=== PATIENT | male | born 1990 | race Caucasian/White ===

== ENCOUNTER 2017-06-10 16:36 | Emergency (ER) | payer BC, MEDICAID, OTHER ==
[2017-06-10 16:45] VITALS: BP 140/77
--- NOTE | 2017-06-10 17:33 | UC ---
Respiratory Complaint HPI - HPI Summary HPI Summary: chest burning with cough and inspiration for 2 days, no fevers chills nausea vomiting or SOB. Is also interested in STD testing - History of Current Complaint Chief Complaint: UCRespiratory Stated Complaint: RESP COMPLAINT Time Seen by Provider: 06/10/17 17:45 Hx Obtained From: Patient Onset/Duration: Sudden Onset, Lasting Days - 2, Still Present Timing: Constant Severity Initially: Mild Severity Currently: Mild Character: Cough: Nonproductive Aggravating Factors: Deep Breaths Alleviating Factors: Nothing Associated Signs And Symptoms: Positive: Pleuritic Chest Pain, URI - Allergies/Home Medications Allergies/Adverse Reactions: Allergies Allergy/AdvReac Type Severity Reaction Status Date / Time Penicillins Allergy Severe Anaphylatic Verified 06/10/17 16:44 Shock PMH/Surg Hx/FS Hx/Imm Hx Previously Healthy: Yes Other History Of: Negative For: HIV, Hepatitis B, Hepatitis C - Surgical History Surgical History: Yes Surgery Procedure, Year, and Place: tubes in ears; testicular surgery - Family History Known Family History: Positive: None Negative: Cardiac Disease, Hypertension - Social History Occupation: Employed Full-time Lives: With Family Alcohol Use: None Substance Use Type: None Smoking Status (MU): Never Smoked Tobacco Household Exposure Type: Cigarettes - Immunization History Most Recent Influenza Vaccination: 2014 Most Recent Tetanus Shot: UTD Review of Systems Constitutional: Negative Skin: Negative Eyes: Negative ENT: Negative Respiratory: Cough Cardiovascular: Negative Gastrointestinal: Negative Genitourinary: Negative Motor: Negative Neurovascular: Negative Musculoskeletal: Negative Neurological: Negative Psychological: Negative Is Patient Immunocompromised?: No All Other Systems Reviewed And Are Negative: Yes Physical Exam Triage Information Reviewed: Yes Appearance: Well-Appearing, No Pain Distress, Well-Nourished Vital Signs: Initial Vital Signs Temp 98.6 F 06/10/17 16:38 Pulse 104 06/10/17 16:38 Resp 15 06/10/17 16:38 BP 140/77 06/10/17 16:38 Pulse Ox 99 06/10/17 16:38 Vital Signs Reviewed: Yes Eye Exam: Normal Eyes: Positive: Conjunctiva Clear ENT Exam: Normal ENT: Positive: Normal ENT inspection, Hearing grossly normal, Pharynx normal, TMs normal, Uvula midline. Negative: Nasal congestion, Nasal drainage, Tonsillar swelling, Tonsillar exudate, Trismus, Muffled voice, Hoarse voice, Dental tenderness, Sinus tenderness Dental Exam: Normal Neck exam: Normal Neck: Positive: Supple, Nontender, No Lymphadenopathy Respiratory Exam: Normal Respiratory: Positive: Chest non-tender, Lungs clear, Normal breath sounds, No respiratory distress, No accessory muscle use Cardiovascular Exam: Normal Cardiovascular: Positive: RRR, No Murmur, Pulses Normal, Brisk Capillary Refill Musculoskeletal Exam: Normal Musculoskeletal: Positive: Strength Intact, ROM Intact, No Edema Neurological Exam: Normal Neurological: Positive: Alert, Muscle Tone Normal Psychological Exam: Normal Skin Exam: Normal UC Diagnostic Evaluation - Laboratory O2 Sat by Pulse Oximetry: 99 Respiratory Course/Dx - Course Course Of Treatment: Lab studies for STD screening, albuterol, zithromax and prednisone for Bronchitis, follow with pcp - Differential Dx/Diagnosis Provider Diagnoses: Bronchitis, STD screening Discharge - Discharge Plan Condition: Stable Disposition: HOME Prescriptions: Albuterol HFA INHALER* [Ventolin HFA Inhaler*] 2 puff INH Q4H PRN #1 mdi PRN Reason: cough/chest tightness Azithromycin TAB* [Zithromax TAB (Z-THERESA) 250 mg #6 tabs] 2 tab PO .TODAY, THEN 1 DAILY #1 theresa predniSONE TAB* [Deltasone TAB*] 50 mg PO DAILY #4 tab Patient Education Materials: Sexually Transmitted Diseases (ED), Acute Bronchitis (ED), Hypertension (ED) Referrals: Jet Almaguer MD [Primary Care Provider] - 1 Week
--- NOTE | 2017-06-12 15:11 | UC ---
- Progress Note Progress Note: please call patient--notify patient he is positive for Chlamydia will be treated with a one time dose of 1,000 mg of Zithromax--he must take all at once- --no sexual contact for 10 days, any other he has had sexual contact with should also be treated---We can provide expedited partner treatment--But I cannot call them in he must come up here to get the scripts please find out how many he will need please---Meds have been called in to pharmacy documented Course/Dx - Course Course Of Treatment: Lab studies for STD screening, albuterol, zithromax and prednisone for Bronchitis, follow with pcp
== END 2017-06-10 18:00 | disposition home or self-care (01) ==
LOC: UCEAST 16:36
DX: J40 Bronchitis, not specified as acute or chronic (principal); Z11.3 Encounter for screening for infections with a predominantly sexual mode of transmission; Z11.4 Encounter for screening for human immunodeficiency virus [HIV]; Z88.0 Allergy status to penicillin; Z77.22 Contact with and (suspected) exposure to environmental tobacco smoke (acute) (chronic)
CPT/HCPCS: 36415; 81003; 86592; 86703; 86706; 86803; 87340; 87491; 87591; 99212; G0463

== ENCOUNTER 2017-06-18 20:30 | Emergency (ER) | payer MEDICAID ==
[2017-06-18 20:39] VITALS: BP 146/86
[2017-06-18] MEDS ORDERED: Fluorescein Sodium TOPICAL* 1 MG TEST OPHTHALMIC ONE (21:28)
[2017-06-18] MEDS ORDERED: Polymyx/Trimethoprim OPTH* 10 ML BTL LEFT EYE ONE (21:46)
[2017-06-18] MEDS ORDERED: Ibuprofen TAB* 600 MG PO ONE (21:47)
--- NOTE | 2017-06-18 21:48 | UC ---
Eye Complaint HPI - HPI Summary HPI Summary: 26 yo male awoke this am and noted left eye redness and photophobia tearing no purlent d/c no trauma lower lid FB sensation - History of Current Complaint Chief Complaint: UCEye Stated Complaint: EYE COMPLAINT Time Seen by Provider: 06/18/17 21:24 Hx Obtained From: Patient Onset/Duration: Gradual Onset, Lasting Hours Timing: Constant Severity Initially: Moderate Severity Currently: Moderate Pain Intensity: 6 Pain Scale Used: 0-10 Numeric Location of Injury: Conjunctiva Associated Signs And Symptoms: Positive: Photophobia, Drainage (Clear) Eyes: 1 - corneal abrasion - Risk Factors Penetrating Injury Risk Factor: Negative Globe Rupture Risk Factors: Negative Acute Glaucoma Risk Factors: Negative Optic Artery Occlusion Risk Factors: Negative - Allergies/Home Medications Allergies/Adverse Reactions: Allergies Allergy/AdvReac Type Severity Reaction Status Date / Time Penicillins Allergy Severe Anaphylatic Verified 06/18/17 20:39 Shock PMH/Surg Hx/FS Hx/Imm Hx Previously Healthy: Yes Other History Of: Negative For: HIV, Hepatitis B, Hepatitis C - Surgical History Surgical History: Yes Surgery Procedure, Year, and Place: tubes in ears; testicular surgery - Family History Known Family History: Negative: Cardiac Disease, Hypertension - Social History Alcohol Use: None Substance Use Type: None Smoking Status (MU): Never Smoked Tobacco Household Exposure Type: Cigarettes - Immunization History Most Recent Influenza Vaccination: 2014 Most Recent Tetanus Shot: UTD Review of Systems Constitutional: Negative Skin: Negative Eyes: Eye Redness, Photophobia ENT: Negative Respiratory: Negative Cardiovascular: Negative Gastrointestinal: Negative Genitourinary: Negative Motor: Negative Neurovascular: Negative Musculoskeletal: Negative Neurological: Negative Psychological: Negative Is Patient Immunocompromised?: No All Other Systems Reviewed And Are Negative: Yes Physical Exam Triage Information Reviewed: Yes Appearance: Well-Appearing, No Pain Distress, Well-Nourished Vital Signs: Initial Vital Signs Temp 97.7 F 06/18/17 20:35 Pulse 93 06/18/17 20:35 Resp 16 06/18/17 20:35 BP 146/86 06/18/17 20:35 Pulse Ox 100 06/18/17 20:35 Eyes: Positive: Conjunctiva Inflamed, Other: - eomi/perrl/(+) florescein staining defect as noted. Negative: Discharge Neck: Positive: Supple, Nontender Respiratory: Positive: Lungs clear, Normal breath sounds, No respiratory distress Cardiovascular: Positive: RRR, No Murmur Musculoskeletal: Positive: ROM Intact, No Edema Neurological: Positive: Alert Psychological Exam: Normal Skin Exam: Normal Eye Complaint Course/Dx - Differential Dx/Diagnosis Provider Diagnoses: corneal abrasion left eye Discharge - Discharge Plan Condition: Stable Disposition: HOME Prescriptions: Ibuprofen TAB* [Motrin TAB*] 600 mg PO Q6H PRN #40 tab PRN Reason: Pain Patient Education Materials: Corneal Abrasion (ED) Referrals: Joel Tong MD [Medical Doctor] - 1 Day Additional Instructions: I suggest recheck tomorrow If unable to get in to see Dr. Tong we are happy to recheck you You have a good sized abrasion and we want to make sure it heals use antibiotic drops as prescribed
== END 2017-06-18 22:05 | disposition home or self-care (01) ==
LOC: UCEAST 20:30
DX: S05.02XA Injury of conjunctiva and corneal abrasion without foreign body, left eye, initial encounter (principal); X58.XXXD Exposure to other specified factors, subsequent encounter; Y92.9 Unspecified place or not applicable
CPT/HCPCS: 99213; A9270-GY; G0463

== ENCOUNTER 2017-10-09 02:45 | Emergency (ER) | payer MEDICAID ==
[2017-10-09 03:32] LABS: ABS Basophils 0 10^3/ul (0-0.2); ABS Eosinophils 0.1 10^3/ul (0-0.6); ABS Lymphocytes 1.4 10^3/ul (1.0-4.8); ABS Monocytes 0.9 10^3/ul (0-0.8); ABS Neutrophils 3.1 10^3/ul (1.5-7.7); ABS Nucleated RBC 0 10^3/ul; Eosinophil % 2.5 % (0-6); Hematocrit 43 % (42-52); Lymphocyte % 25.5 % (25-47); Mean Corpuscular HGB Conc 35 g/dl (31-36); Mean Corpuscular Hemoglobin 31 pg (27-31); Mean Corpuscular Volume 89 fL (80-94); Mean Platelet Volume 8.9 um3 (7.4-10.4); Nucleated Red Blood Cells % 0.1; Platelet Count 225 10^3/ul (150-450); Red Blood Count 4.85 10^6/ul (4.0-5.4); Red Cell Distribution Width 13 % (10.5-15); White Blood Count 5.6 10^3/ul (3.5-10.8)
[2017-10-09] MEDS ORDERED: Ketorolac INJ* 30 MG/ML 1 ML VIAL IV PUSH ONE (03:42)
[2017-10-09] MEDS ORDERED: Metoclopramide IV* 5 MG/ML 2 ML VIAL IV ONE (03:42)
[2017-10-09 04:16] LABS: Urine Appearance Clear; Urine Blood Negative (Negative); Urine Color Yellow; Urine Ketones Negative (Negative); Urine Protein Negative (Negative); Urine Specific Gravity 1.026 (1.010-1.030); Urine Urobilinogen Negative (Negative)
[2017-10-09] MEDS ORDERED: Iohexol 300* (CONTRAST) 10 ML SDV IV ONE (05:27)
[2017-10-09 06:59] VITALS: BP 110/77
--- NOTE | 2017-10-09 08:21 | RAD ---
INDICATION: Abdominal pain. COMPARISON: Comparison is made with prior CT studies of the abdomen from March 17, 2014 and January 28, 2016 TECHNIQUE: A CT scan of the abdomen and pelvis was performed with intravenous and oral contrast following intravenous injection of 150 ml of Omnipaque 300 nonionic contrast. Contiguous axial sections were obtained from the lung bases through the symphysis pubis. Images were reconstructed in the coronal and sagittal planes. FINDINGS: There is mild dependent bilateral lower lobe subsegmental atelectasis. No pleural effusion is present. The liver and spleen are within normal limits in size without significant focal abnormality. No calcified gallstones are seen. The pancreas appears to be within normal limits in size. The kidneys and adrenal glands are normal in size. No hydronephrosis is seen. No significant focal renal abnormality is seen. The aorta is normal in caliber and demonstrates homogeneous contrast opacification. No significant enlarged retroperitoneal lymph nodes are seen. The stomach, small and large bowel appear nondistended. The appendix is within normal limits. There is mild descending and sigmoid diverticulosis without evidence for diverticulitis. No free intraperitoneal air or fluid is seen. No significant focal osseous abnormality is seen. IMPRESSION: NO EVIDENCE FOR ACUTE INTRA-ABDOMINAL ABNORMALITY OR CAUSE FOR THE PATIENT'S ABDOMINAL PAIN IS SEEN.
--- NOTE | 2017-10-09 19:52 | ED ---
Jazmine Eli Rebecca, scribed for Aaliyah Rocha MD on 10/09/17 at 0331 . Abdominal Pain/Male - HPI Summary HPI Summary: Pt is a 26 y/o M who presents to ED c/o abdominal pain. Sx have been present for 3 days, worse since 0100 this morning. Pain is located on the right side and is characterized as burning. Pain is currently moderate, ranked 5/10. Sx aggravated by cough, alleviated by nothing. Unsure if symptoms are brought on by eating. Additionally c/o N/V. Denies dysuria, fever, diarrhea. The ride here was not particularly painful. Last BM was at 1800 and normal. No PSHx on the abdomen. - History of Current Complaint Chief Complaint: EDAbdPain Stated Complaint: VOMITING Time Seen by Provider: 10/09/17 03:04 Hx Obtained From: Patient Onset/Duration: Lasting Days - 3 days, Still Present Severity Currently: Moderate Pain Intensity: 5 Pain Scale Used: 0-10 Numeric Location: Other - Right side Character: Burning Aggravating Factor(s): Other: - Cough Alleviating Factor(s): Nothing Associated Signs And Symptoms: Positive: Nausea, Vomiting. Negative: Fever, Urinary Symptoms, Diarrhea - Allergies/Home Medications Allergies/Adverse Reactions: Allergies Allergy/AdvReac Type Severity Reaction Status Date / Time Penicillins Allergy Anaphylatic Verified 10/09/17 02:51 Shock PMH/Surg Hx/FS Hx/Imm Hx Endocrine/Hematology History: Denies: Hx Diabetes Cardiovascular History: Denies: Hx Congestive Heart Failure, Hx Hypertension Respiratory History: Reports: Hx Asthma - childhood History: Denies: Hx Renal Disease - Surgical History Surgery Procedure, Year, and Place: tubes in ears; testicular surgery Infectious Disease History: No Infectious Disease History: Denies: History Other Infectious Disease, Traveled Outside the [place] in Last 30 Days - Family History Known Family History: Negative: Cardiac Disease, Hypertension - Social History Alcohol Use: None Substance Use Type: Reports: None Smoking Status (MU): Never Smoked Tobacco Review of Systems Negative: Fever Positive: Abdominal Pain, Vomiting, Nausea. Negative: Diarrhea Negative: dysuria All Other Systems Reviewed And Are Negative: Yes Physical Exam - Summary Physical Exam Summary: GENERAL: ~Patient is a well developed and nourished M who is lying comfortable in the stretcher. ~Patient is not in any acute respiratory distress. HEAD AND FACE: Normocephalic EYES: PERRLA, EOMI x 2. EARS: Hearing grossly intact. MOUTH: Oropharynx within normal limits. NECK: Supple, trachea is midline, no adenopathy, no JVD, no carotid bruit. CHEST: Symmetric, no tenderness at palpation LUNGS: Clear to auscultation bilaterally. No wheezing or crackles. CVS: Regular rate and rhythm, S1 and S2 present, no murmurs or gallops appreciated. ABDOMEN: Soft, slight tenderness to palpation on the right side. There is no area that is worse. Voluntary guarding but no rebound. Bowel sounds are normal. No abdominal abnormal pulsations. EXTREMITIES: Full ROM in all major joints, no edema, no cyanosis or clubbing. NEURO: Alert and oriented x 3. No acute neurological deficits. Speech is normal and follows commands. SKIN: Dry and warm Triage Information Reviewed: Yes Vital Signs On Initial Exam: Initial Vitals Temp Pulse Resp BP Pulse Ox 98.0 F 85 16 145/84 99 10/09/17 02:49 10/09/17 02:49 10/09/17 02:49 10/09/17 02:49 10/09/17 02:49 Vital Signs Reviewed: Yes Diagnostics - Vital Signs Vital Signs Temp Pulse Resp BP Pulse Ox 10/09/17 03:06 89 136/92 96 10/09/17 03:05 86 97 10/09/17 02:49 98.0 F 85 16 145/84 99 - Laboratory Result Diagrams: 10/09/17 03:18 10/09/17 03:18 Lab Statement: Any lab studies that have been ordered have been reviewed, and results considered in the medical decision making process. - CT CT Abd/Pel CT Interpretation: No Acute Changes - No acute findings. ED physician reviewed this radiology report. CT Interpretation Completed By: Radiologist Re-Evaluation - Re-Evaluation First Eval Re-Evaluation Time: 06:37 Change: Improved Comment: The pain is completely gone. Abdominal Pain Fem Course/Dx - Course Assessment/Plan: Pt is a 26 y/o M who presents to ED c/o abdominal pain with N/ V. His workup is unremarkable. CT Abd/Pel reveals no acute pathology. He was given IV Toradol and IV Reglan and his symptoms significantly improved. He is now completely pain free. He wis hemodynamically stable and will be discharged to home with return precautions. - Diagnoses Provider Diagnoses: Abdominal pain Discharge - Sign-Out/Discharge Documenting (check all that apply): Discharge/Admit/Transfer - Discharge - Discharge Plan Condition: Stable Disposition: HOME Patient Education Materials: Acute Abdominal Pain (ED) Referrals: Jet Almaguer MD [Primary Care Provider] - 3 Days Additional Instructions: RETURN TO ED FOR ANY NEW OR RETURNING SYMPTOMS. The documentation as recorded by the Jazmine oglesby Rebecca accurately reflects the service I personally performed and the decisions made by Aj mcintyre Tudie-Ann, MD.
== END 2017-10-09 07:00 | disposition home or self-care (01) ==
LOC: ED 02:45
DX: R10.11 Right upper quadrant pain (principal); R11.2 Nausea with vomiting, unspecified; J45.909 Unspecified asthma, uncomplicated; Z88.0 Allergy status to penicillin
CPT/HCPCS: 36415; 74177; 80053; 81003; 83605; 83690; 85025; 86140; 96374; 96375; 99284; J1885; J2765; Q9967

== ENCOUNTER 2018-06-07 10:19 | Emergency (ER) | payer MEDICAID, OTHER ==
[2018-06-07 10:28] VITALS: BP 152/102
--- NOTE | 2018-06-07 10:29 | UC ---
Eye Complaint HPI - HPI Summary HPI Summary: 27 yo male presents with LEFT eye FB sensation and pain. He does not recall getting any FB into his eye or injury. Says he had something like this last year and it was a "corneal scratch". He wears glasses, but no contacts. No recent illness. - History of Current Complaint Chief Complaint: UCEye Stated Complaint: EYE COMPLAINT Time Seen by Provider: 06/07/18 10:29 Hx Obtained From: Patient Onset/Duration: Sudden Onset Timing: Constant Severity Initially: Mild Severity Currently: Mild Pain Intensity: 3 Pain Scale Used: 0-10 Numeric - Allergies/Home Medications Allergies/Adverse Reactions: Allergies Allergy/AdvReac Type Severity Reaction Status Date / Time Penicillins Allergy Anaphylatic Verified 06/07/18 10:29 Shock PMH/Surg Hx/FS Hx/Imm Hx - Additional Past Medical History Additional PMH: None Other History Of: Negative For: HIV, Hepatitis B, Hepatitis C - Surgical History Surgical History: Yes Surgery Procedure, Year, and Place: tubes in ears; testicular surgery - Family History Known Family History: Positive: None Negative: Cardiac Disease, Hypertension - Social History Alcohol Use: None Substance Use Type: None Smoking Status (MU): Never Smoked Tobacco Household Exposure Type: Cigarettes - Immunization History Most Recent Influenza Vaccination: 2014 Most Recent Tetanus Shot: UTD Review of Systems All Other Systems Reviewed And Are Negative: Yes Constitutional: Positive: Negative Skin: Positive: Negative Eyes: Positive: Eye Redness, Other - FB sensation left eye ENT: Positive: Negative Respiratory: Positive: Negative Cardiovascular: Positive: Negative Neurological: Positive: Negative Psychological: Positive: Negative Physical Exam - Summary Physical Exam Summary: GENERAL: WDWN. No pain distress. SKIN: No rashes, sores, lesions, or open wounds. HEENT: Head: AT/NC Eyes: EOM intact. PERRLA. LEFT EYE: Mild scleral injection. Conjunctiva without erythema or inflammation. Fluorescein exam: 2mm linear corneal abrasion at 9 o'clock position. No tiffany sign. No FB appreciated. RIGHT EYE: Conjunctiva clear without inflammation or discharge. No FBs appreciated Nose: NTTP maxillary and frontal sinus. NECK: Supple. Nontender. No lymphadenopathy. CHEST: No accessory muscle use. Breathing comfortably and in no distress. CV: Pulses intact. Cap refill <2seconds NEURO: Alert. PSYCH: Age appropriate behavior. Triage Information Reviewed: Yes Vital Signs: Initial Vital Signs Temp 96.7 F 06/07/18 10:27 Pulse 84 06/07/18 10:27 Resp 18 06/07/18 10:27 BP 152/102 06/07/18 10:27 Pulse Ox 100 06/07/18 10:27 Vital Signs Reviewed: Yes Eye Complaint Course/Dx - Course Course Of Treatment: Corneal abrasion left eye. - Differential Dx/Diagnosis Provider Diagnosis: Corneal abrasion, left Discharge - Sign-Out/Discharge Documenting (check all that apply): Patient Departure All imaging exams completed and their final reports reviewed: No Studies - Discharge Plan Condition: Stable Disposition: HOME Prescriptions: Ofloxacin 0.3% (Eye Drop) [Ocuflox OPTH 0.3% (Eye Drop)] 1 - 2 drop LEFT EYE QID #1 btl Patient Education Materials: Corneal Abrasion (ED) Forms: *Work Release Referrals: Donna García PA [Primary Care Provider] - Joel Tong MD [Medical Doctor] - If Needed Additional Instructions: If you develop a fever, shortness of breath, chest pain, new or worsening symptoms - please call your PCP or go to the ED. Your blood pressure was high at todays visit. Please see your primary provider within 4 weeks for recheck and re-evaluation. If your eye does not improve in the next day or two - please call Dr. Tong at the number below to schedule a follow up appointment - Billing Disposition and Condition Condition: STABLE Disposition: Home
[2018-06-07] MEDS ORDERED: Fluorescein Sodium TOPICAL* 1 MG TEST STRIP OPHTHALMIC ONE (10:33)
[2018-06-07] MEDS ORDERED: Tetracaine 0.5% OPTH.SOL 4 ML* 1 DROP BTL BOTH EYES ONE (10:33)
== END 2018-06-07 10:45 | disposition home or self-care (01) ==
LOC: UCEAST 10:19
DX: S05.02XA Injury of conjunctiva and corneal abrasion without foreign body, left eye, initial encounter (principal); Z88.0 Allergy status to penicillin; X58.XXXA Exposure to other specified factors, initial encounter; Y92.9 Unspecified place or not applicable
CPT/HCPCS: 99212; A9270-GY; G0463

== ENCOUNTER → 2018-07-14 20:47 | Emergency (ER) | payer BC, MEDICAID ==
[~2018-07-14 20:47] MED LIST: Acetaminophen TAB* 325 MG PO ONE; Cephalexin CAP* 500 MG PO ONE; Metoclopramide IV* 5 MG/ML 2 ML VIAL IV SLOW PU ONE; NS 0.9% 1000 ML** 2,000 ML IV ONE
--- NOTE | 2018-07-14 22:04 | ED ---
GI/ HPI - HPI Summary HPI Summary: This patient is a 27 year old M presenting to [facility] accompanied by family with a chief complaint of nausea and vomiting that began earlier today. The patient rates the pain 0/10 in severity. Symptoms aggravated by nothing. Symptoms alleviated by nothing. Patient reports fever (102.7F), epigastric abd pain, and sore throat. Patient denies diarrhea. - History of Current Complaint Chief Complaint: EDNauseaVomitDiarrh Time Seen by Provider: 07/14/18 21:57 Stated Complaint: VOMITING/FEVER Hx Obtained From: Patient Onset/Duration: Started Hours Ago, Atraumatic, Still Present Timing: Constant Severity: Mild Current Severity: Mild Pain Intensity: 0 Location of Pain: Epigastric Associated Signs and Symptoms: Positive: Other: - Positive fever (102.7F), epigastric abd pain, and sore throat. Negative diarrhea. Aggravating Factor(s): Nothing Alleviating Factor(s): Nothing - Allergy/Home Medications Allergies/Adverse Reactions: Allergies Allergy/AdvReac Type Severity Reaction Status Date / Time Penicillins Allergy Anaphylatic Verified 07/14/18 20:53 Shock PMH/Surg Hx/FS Hx/Imm Hx Previously Healthy: No Endocrine/Hematology History: Denies: Hx Diabetes Cardiovascular History: Denies: Hx Congestive Heart Failure, Hx Hypertension Respiratory History: Reports: Hx Asthma - childhood History: Denies: Hx Renal Disease - Surgical History Surgery Procedure, Year, and Place: tubes in ears; testicular surgery Infectious Disease History: No Infectious Disease History: Denies: History Other Infectious Disease, Traveled Outside the [place] in Last 30 Days - Family History Known Family History: Negative: Cardiac Disease, Hypertension - Social History Occupation: Employed Full-time Lives: With Family Alcohol Use: None Hx Substance Use: No Substance Use Type: Reports: None Hx Tobacco Use: No Smoking Status (MU): Never Smoked Tobacco Review of Systems Positive: Fever Positive: Sore Throat Positive: Abdominal Pain, Vomiting, Nausea. Negative: Diarrhea All Other Systems Reviewed And Are Negative: Yes Physical Exam - Summary Physical Exam Summary: VITAL SIGNS: Reviewed. GENERAL: Patient is a well-developed and nourished male who is lying comfortable in the stretcher. Patient is not in any acute respiratory distress. HEAD AND FACE: No signs of trauma. No ecchymosis, hematomas or skull depressions. No sinus tenderness. EYES: PERRLA, EOMI x 2, No injected conjunctiva, no nystagmus. EARS: Hearing grossly intact. Ear canals and tympanic membranes are within normal limits. MOUTH: Oropharynx within normal limits. Pharyngeal hyperemia, no exudate. NECK: Supple, trachea is midline, no adenopathy, no JVD, no carotid bruit, no c- spine tenderness, neck with full ROM. CHEST: Symmetric, no tenderness at palpation LUNGS: Clear to auscultation bilaterally. No wheezing or crackles. CVS: Regular rate and rhythm, S1 and S2 present, no murmurs or gallops appreciated. ABDOMEN: Soft, non-tender. No signs of distention. No rebound no guarding, and no masses palpated. Bowel sounds are normal. EXTREMITIES: FROM in all major joints, no edema, no cyanosis or clubbing. NEURO: Alert and oriented x 3. No acute neurological deficits. Speech is normal and follows commands. SKIN: Dry and warm Triage Information Reviewed: Yes Vital Signs On Initial Exam: Initial Vitals Temp Pulse Resp BP Pulse Ox 99.1 F 113 18 140/95 96 07/14/18 20:51 07/14/18 20:51 07/14/18 20:51 07/14/18 20:51 07/14/18 20:51 Vital Signs Reviewed: Yes Diagnostics - Vital Signs Vital Signs Temp Pulse Resp BP Pulse Ox 07/14/18 20:51 99.1 F 113 18 140/95 96 - Laboratory Result Diagrams: 07/14/18 22:37 07/14/18 22:37 Lab Statement: Any lab studies that have been ordered have been reviewed, and results considered in the medical decision making process. Re-Evaluation - Re-Evaluation First Eval Re-Evaluation Time: 23:35 Change: Improved Comment: Upon re-examination the patient has post nasal drip. The patient reports his symptoms have improved. GIGU Course/Dx - Course Course Of Treatment: This patient is a 27 year old M presenting to [facility] accompanied by family with a chief complaint of nausea and vomiting that began earlier today. Physical Exam Findings: Pharyngeal hyperemia, no exudate. Postnasal drip. Bloodwork obtained. In the ED course the patient was given acetaminophen, cephalexin, fluids, and Reglan. Patient will be discharged with prescription for Keflex, Motrin, and Reglan and with follow up from PCP. The patient is agreeable with this plan. - Diagnoses Provider Diagnoses: Pharyngitis, Sinusitis Discharge - Sign-Out/Discharge Documenting (check all that apply): Patient Departure - Discharge home Patient Received Moderate/Deep Sedation with Procedure: No - Discharge Plan Condition: Stable Disposition: HOME Prescriptions: Cephalexin CAP* [Keflex CAP*] 500 mg PO QID #30 cap Ibuprofen TAB* [Motrin TAB* 800 MG] 800 mg PO Q6H PRN #30 tab PRN Reason: Fever/Pain Metoclopramide TAB* [Reglan TAB*] 10 mg PO Q6H PRN #20 tab PRN Reason: Nausea/Vomiting Patient Education Materials: Pharyngitis (ED), Sinusitis (ED) Forms: *Work Release Referrals: Donna García PA [Primary Care Provider] - 2 Days Additional Instructions: RETURN TO THE EMERGENCY DEPARTMENT FOR NEW OR WORSENING SYMPTOMS - Attestation Statements Document Initiated by Scribe: Yes Documenting Scribe: Mira Apple Provider For Whom Scribe is Documenting (Include Credential): Dr. Anika Bowden MD Scribe Attestation: Mira Eli, scribed for Dr. Anika Bowden MD on 07/14/18 at 2340. Status of Scribe Document: Ready
[2018-07-14 22:47] LABS: Hematocrit 44 % (42-52); Hemoglobin 14.8 g/dl (14.0-18.0); Mean Corpuscular HGB Conc 34 g/dl (31-36); Mean Corpuscular Hemoglobin 30 pg (27-31); Mean Corpuscular Volume 89 fL (80-94); Mean Platelet Volume 9.1 fL (7.4-10.4); Platelet Count 225 10^3/ul (150-450); Red Blood Count 4.95 10^6/ul (4.00-5.40); Red Cell Distribution Width 13 % (10.5-15); White Blood Count 14.4 10^3/ul (3.5-10.8)
[2018-07-14 22:50] LABS: Influenza A Molecular NEGATIVE (Negative); Influenza B Molecular NEGATIVE (Negative)
[2018-07-14 22:53] LABS: INR 1.03 (0.77-1.02)
[2018-07-14 23:05] LABS: Albumin 4.6 g/dL (3.2-5.2); Albumin/Globulin Ratio 1.4 (1-3); BUN/Creatinine Ratio 13.1 (8-20); C Reactive Protein 89.21 mg/L (<8.01); Calcium 9.8 mg/dL (8.6-10.3); EGFR African American 100.3 (>60); EGFR Non-African American 82.9 (>60); Globulin 3.2 g/dL (2-4); Total Protein 7.8 g/dL (6.4-8.9)
[2018-07-14 23:16] LABS: ABS Basophils 0.1 10^3/ul (0-0.2); ABS Eosinophils 0.1 10^3/ul (0-0.6); ABS Lymphocytes 1.7 10^3/ul (1.0-4.8); ABS Monocytes 1.8 10^3/ul (0-0.8); ABS Neutrophils 10.6 10^3/ul (1.5-7.7); ABS Nucleated RBC 0 10^3/ul; Nucleated Red Blood Cells % 0
[2018-07-15 00:02] VITALS: BP 137/87
== END | disposition home or self-care (01) ==
LOC: ED 20:47
DX: J02.9 Acute pharyngitis, unspecified (principal); J32.9 Chronic sinusitis, unspecified; Z88.0 Allergy status to penicillin
CPT/HCPCS: 36415; 80053; 82150; 83605; 83690; 85025; 85610; 86140; 87040; 87651; 96374; 99283; A9270-GY; J2765

== ENCOUNTER 2019-01-05 02:46 | Emergency (ER) | payer MEDICAID ==
--- NOTE | 2019-01-05 03:18 | ED ---
Abdominal Pain/Male - HPI Summary HPI Summary: A 28 y/o male presents to [facility] with a chief complaint of abdominal pain for the past three days. He also reports N/V and denies urinary symptoms, SOB or CP. Movement, deep breaths or coughing aggravates his pain. Yesterday he had his last BM which was normal. - History of Current Complaint Chief Complaint: EDAbdPain Stated Complaint: STOMACH PAIN PER PT Time Seen by Provider: 01/05/19 03:04 Hx Obtained From: Patient Onset/Duration: Sudden Onset, Lasting Days, Still Present Timing: Constant Severity Initially: Severe Severity Currently: Severe Pain Intensity: 10 Pain Scale Used: 0-10 Numeric Location: Diffuse Radiates: No Character: Other: - unable to describe Aggravating Factor(s): Movement, Deep Breaths, Other: - coughing Alleviating Factor(s): Nothing Associated Signs And Symptoms: Positive: Nausea, Vomiting. Negative: Fever, Chest Pain, Back Pain, Urinary Symptoms - Allergies/Home Medications Allergies/Adverse Reactions: Allergies Allergy/AdvReac Type Severity Reaction Status Date / Time Penicillins Allergy Anaphylatic Verified 07/14/18 20:53 Shock PMH/Surg Hx/FS Hx/Imm Hx Endocrine/Hematology History: Denies: Hx Diabetes Cardiovascular History: Denies: Hx Congestive Heart Failure, Hx Hypertension Respiratory History: Reports: Hx Asthma - childhood History: Denies: Hx Renal Disease - Surgical History Surgery Procedure, Year, and Place: tubes in ears; testicular surgery Infectious Disease History: No Infectious Disease History: Denies: History Other Infectious Disease, Traveled Outside the [place] in Last 30 Days - Family History Known Family History: Negative: Cardiac Disease, Hypertension - Social History Alcohol Use: Rare Hx Substance Use: No Substance Use Type: Reports: None Hx Tobacco Use: No Smoking Status (MU): Never Smoked Tobacco Review of Systems Negative: Fever Negative: Chest Pain Negative: Shortness Of Breath Positive: Abdominal Pain, Vomiting, Nausea Negative: dysuria, hematuria Negative: Myalgia All Other Systems Reviewed And Are Negative: Yes Physical Exam - Summary Physical Exam Summary: Constitutional: Well-developed, Well-nourished, Alert. (-) Distressed Skin: Warm, Dry HENT: Normocephalic; Atraumatic Eyes: Conjunctiva normal Neck: Musculoskeletal ROM normal neck. (-) JVD, (-) Stridor, (-) Tracheal deviation Cardio: Rhythm regular, rate normal, Heart sounds normal; Intact distal pulses; The pedal pulses are 2+ and symmetric. Radial pulses are 2+ and symmetric. (-) Murmur Pulmonary/Chest wall: Effort normal. (-) Respiratory distress, (-) Wheezes, (-) Rales Abd: Soft, (+) LLQ tenderness, (-) Distension, (-) Guarding, (-) Rebound Musculoskeletal: (-) Edema Lymph: (-) Cervical adenopathy Neuro: Alert, Oriented x3 Psych: Mood and affect Normal Triage Information Reviewed: Yes Vital Signs On Initial Exam: Initial Vitals Temp Pulse Resp BP Pulse Ox 98.1 F 100 20 165/77 98 01/05/19 02:50 01/05/19 02:50 01/05/19 02:50 01/05/19 02:50 01/05/19 02:50 Vital Signs Reviewed: Yes Diagnostics - Vital Signs Vital Signs Temp Pulse Resp BP Pulse Ox 01/05/19 02:50 98.1 F 100 20 165/77 98 - Laboratory Result Diagrams: 01/05/19 03:44 01/05/19 03:44 Lab Statement: Any lab studies that have been ordered have been reviewed, and results considered in the medical decision making process. - CT abdomen/pelvis CT Interpretation Completed By: Radiologist Summary of CT Findings: 1. No evidence for diverticulitis. 2. Mild hepatomegaly. 3. Old granulomatous disease. ED physician has reviewed this imaging report. Re-Evaluation - Re-Evaluation First Eval Re-Evaluation Time: 06:44 Abdominal Pain Male Course/Dx - Course Course Of Treatment: A 28 y/o male presents to [facility] with a chief complaint of abdominal pain for the past three days. The physical exam revealed LLQ tenderness. Blood work, chemistries and urines obtained and are WNL. Abdomen/ pelvis CT impression: 1. No evidence for diverticulitis. 2. Mild hepatomegaly. 3. Old granulomatous disease. The patient will be discharged home. He is agreeable with this plan. - Diagnoses Provider Diagnoses: Abdominal pain Discharge - Sign-Out/Discharge Documenting (check all that apply): Patient Departure - DC Patient Received Moderate/Deep Sedation with Procedure: No - Discharge Plan Condition: Stable Disposition: HOME Prescriptions: Dicyclomine CAP* [Bentyl CAP*] 10 mg PO TID PRN #20 cap PRN Reason: Pain - Mild Patient Education Materials: Acute Abdominal Pain (ED) Print Language: PRYDEINIG Forms: *Work Release Referrals: Donna García PA [Primary Care Provider] - - Billing Disposition and Condition Condition: STABLE Disposition: Home - Attestation Statements Document Initiated by Scribe: Yes Documenting Scribe: Calvin Rowe Provider For Whom Scribe is Documenting (Include Credential): Mandi Stanford MD Scribe Attestation: Calvin Eli, scribed for Mandi Shin MD on 01/06/19 at 0745. Scribe Documentation Reviewed: Yes Provider Attestation: The documentation as recorded by the Calvin oglesby accurately reflects the service I personally performed and the decisions made by , Mandi Shin MD Status of Scribe Document: Viewed
[2019-01-05 03:58] LABS: ABS Eosinophils 0.1 10^3/ul (0-0.6); ABS Lymphocytes 2.2 10^3/ul (1.0-4.8); ABS Monocytes 1.1 10^3/ul (0-0.8); ABS Neutrophils 5.1 10^3/ul (1.5-7.7); Eosinophil % 1.4 %; Hematocrit 45 % (42-52); Hemoglobin 15.2 g/dL (14.0-18.0); Mean Corpuscular HGB Conc 34 g/dL (31-36); Mean Corpuscular Hemoglobin 30 pg (27-31); Mean Corpuscular Volume 89 fL (80-94); Mean Platelet Volume 8.9 fL (7.4-10.4); Platelet Count 248 10^3/uL (150-450); Red Blood Count 5.08 10^6 /uL (4.18-5.48); Red Cell Distribution Width 13 % (10-15); White Blood Count 8.5 10^3/uL (3.5-10.8)
[2019-01-05 04:14] LABS: Albumin 4.5 g/dL (3.2-5.2); Albumin/Globulin Ratio 1.6 (1-3); BUN/Creatinine Ratio 16.7 (8-20); Calcium 9.9 mg/dL (8.6-10.3); EGFR African American 105.2 (>60); Globulin 2.9 g/dL (2-4); Potassium 3.9 mmol/L (3.5-5.0); Total Bilirubin 0.8 mg/dL (0.2-1.0); Total Protein 7.4 g/dL (6.4-8.9)
[2019-01-05 04:34] LABS: Urine Appearance Cloudy; Urine Bilirubin Negative (Negative); Urine Blood Negative (Negative); Urine Color Yellow; Urine Glucose Negative (Negative); Urine Ketones Negative (Negative); Urine Nitrite Negative (Negative); Urine Protein Negative (Negative); Urine Urobilinogen Negative (Negative)
[2019-01-05 07:27] VITALS: BP 126/75
== END 2019-01-05 07:26 | disposition home or self-care (01) ==
LOC: ED 02:46
DX: R10.9 Unspecified abdominal pain (principal); R16.0 Hepatomegaly, not elsewhere classified; Z88.0 Allergy status to penicillin
CPT/HCPCS: 36415; 74176; 80053; 81003; 83605; 83690; 85025; 86140; 87040; 99283

== ENCOUNTER 2019-02-17 15:46 | Emergency (ER) | payer MEDICAID, OTHER ==
[2019-02-17 16:15] VITALS: BP 141/77
--- NOTE | 2019-02-17 16:36 | UC ---
Elbow Pain - HPI Summary HPI Summary: 28-year-old male who was helping his father do some construction when the father was using a rubber mallet and it slipped out of the father's hand hitting the patient in the left elbow. Patient states he has mild swelling to the left elbow. - History of Current Complaint Chief Complaint: UCUpperExtremity Stated Complaint: ELBOW INJURY FROM SLEDGEHAMMER Time Seen by Provider: 02/17/19 16:29 Hx Obtained From: Patient Onset/Duration: Hours Severity Initially: Mild Severity Currently: Mild Pain Intensity: 3 Character: Dull, Aching Aggravating Factor(s): Movement Alleviating Factor(s): Rest Associated Signs And Symptoms: Positive: Swelling - Minimal swelling noted to the lateral left elbow. - Allergies/Home Medications Allergies/Adverse Reactions: Allergies Allergy/AdvReac Type Severity Reaction Status Date / Time Penicillins Allergy Anaphylatic Verified 02/17/19 16:15 Shock Home Medications: Home Medications NK [No Home Medications Reported] 02/17/19 [History Confirmed 02/17/19] PMH/Surg Hx/FS Hx/Imm Hx Previously Healthy: Yes Other History Of: Negative For: HIV, Hepatitis B, Hepatitis C - Surgical History Surgical History: Yes Surgery Procedure, Year, and Place: tubes in ears; testicular surgery - Family History Known Family History: Negative: Cardiac Disease, Hypertension - Social History Alcohol Use: None Substance Use Type: None Smoking Status (MU): Never Smoked Tobacco Household Exposure Type: Cigarettes - Immunization History Most Recent Influenza Vaccination: 2014 Most Recent Tetanus Shot: UTD Review of Systems All Other Systems Reviewed And Are Negative: Yes Motor: Positive: Negative Neurovascular: Positive: Negative Musculoskeletal: Positive: Other: - Mild pain on palpation to the lateral elbow with minimal swelling present. No deformity. Full range of motion. Neurological: Positive: Negative Psychological: Positive: Negative Is Patient Immunocompromised?: No Physical Exam Triage Information Reviewed: Yes Appearance: Well-Appearing, No Pain Distress, Well-Nourished Vital Signs: Initial Vital Signs Temp 98.1 F 02/17/19 16:11 Pulse 79 02/17/19 16:11 Resp 16 02/17/19 16:11 BP 141/77 02/17/19 16:11 Pulse Ox 98 02/17/19 16:11 Vital Signs Reviewed: Yes Musculoskeletal: Positive: Strength Intact, ROM Intact, Other: - Mild pain on palpation to the lateral elbow with minimal swelling present. No deformity. Full range of motion. Neurological Exam: Normal Psychological Exam: Normal Skin Exam: Normal Elbow Pain Course/Dx - Course Course Of Treatment: Left elbow x-ray:Indication: Left elbow pain. 4 views of left elbow demonstrates no fracture. No joint effusion is noted. No other bone or joint abnormalities identified. IMPRESSION: Unremarkable left elbow. - Differential Dx/Diagnosis Provider Diagnosis: Contusion of left elbow Discharge ED - Sign-Out/Discharge Documenting (check all that apply): Patient Departure All imaging exams completed and their final reports reviewed: Yes - Discharge Plan Condition: Good Disposition: HOME Patient Education Materials: Contusion in Adults (ED) Referrals: Donna García PA [Primary Care Provider] - Additional Instructions: Apply ice intermittently to the sore area, may take Tylenol or Motrin for pain. Follow-up with your primary care provider or orthopedist if continued pain over the next 4 or 5 days or worsening symptoms. - Billing Disposition and Condition Condition: GOOD Disposition: Home - Attestation Statements Provider Attestation: I was available for consult. This patient was seen by the GWENDOLYN. The patient was not presented to, seen by, or examined by me. -Vikram
== END 2019-02-17 17:35 | disposition home or self-care (01) ==
LOC: UCEAST 15:46
DX: S50.02XA Contusion of left elbow, initial encounter (principal); W22.8XXA Striking against or struck by other objects, initial encounter; Y92.9 Unspecified place or not applicable
CPT/HCPCS: 99211; G0463

== ENCOUNTER 2019-07-06 08:33 | Emergency (ER) | payer MEDICAID, OTHER ==
[2019-07-06 08:54] VITALS: BP 136/92
--- NOTE | 2019-07-06 10:03 | UC ---
General HPI - HPI Summary HPI Summary: States he has had a frontal headache for the past 2 days. Congested with clear runny nose, cough. Tmax on first day was 99.4 Good PO. Works as law office manager in hotel. Taking Dayquil and Nyquil with minimal relief NO N/V/D MEds: Reviewed - History of Current Complaint Chief Complaint: UCGeneralIllness Stated Complaint: SINUS ISSUE Time Seen by Provider: 07/06/19 09:53 Pain Intensity: 8 - Allergy/Home Medications Allergies/Adverse Reactions: Allergies Allergy/AdvReac Type Severity Reaction Status Date / Time Penicillins Allergy Anaphylatic Verified 03/25/19 10:04 Shock PMH/Surg Hx/FS Hx/Imm Hx Previously Healthy: Yes Other History Of: Negative For: HIV, Hepatitis B, Hepatitis C - Surgical History Surgical History: Yes Surgery Procedure, Year, and Place: tubes in ears;. testicular surgery - STITCHED IN PLACE - Family History Known Family History: Negative: Cardiac Disease, Hypertension - Social History Alcohol Use: None Substance Use Type: None Smoking Status (MU): Former Smoker Household Exposure Type: Cigarettes - Immunization History Most Recent Influenza Vaccination: 2014 Most Recent Tetanus Shot: UTD Review of Systems All Other Systems Reviewed And Are Negative: Yes Constitutional: Positive: Negative ENT: Positive: Nasal Discharge, Sinus Congestion, Sinus Pain/Tenderness Respiratory: Positive: Cough Physical Exam Triage Information Reviewed: Yes Appearance: Well-Appearing Vital Signs: Initial Vital Signs Temp 98.2 F 07/06/19 08:50 Pulse 108 07/06/19 08:50 Resp 18 07/06/19 08:50 BP 136/92 07/06/19 08:50 Pulse Ox 98 07/06/19 08:50 Vital Signs Reviewed: Yes ENT: Positive: Pharyngeal erythema, Other - frontal headache tenderness, no maxillary tenderness Clear fluid TM's b/l Neck: Positive: Supple, Nontender Respiratory: Positive: Lungs clear, Normal breath sounds Cardiovascular: Positive: RRR, No Murmur Course/Dx - Course Course Of Treatment: This is a 28 yr old with 3 days of sinus headache, and congestion Nontoxic appearing Plan Recommend sudafed for congestion Ibuprofen as needed as directed for headache Would start Afrin nasal spray for 2-3 days as directed Stop Dayquil and and Nyquil If symptoms persist or worsen, recommend follow up with PCP or return to urgent care - Diagnoses Provider Diagnosis: Sinus headache, Viral syndrome Discharge ED - Sign-Out/Discharge Documenting (check all that apply): Patient Departure All imaging exams completed and their final reports reviewed: No Studies - Discharge Plan Condition: Good Disposition: HOME Patient Education Materials: Rhinosinusitis (DC) Forms: *Work Release Referrals: Donna García PA [Primary Care Provider] - Additional Instructions: Recommend sudafed for congestion Ibuprofen as needed as directed for headache Would start Afrin nasal spray for 2-3 days as directed Stop Dayquil and and Nyquil If symptoms persist or worsen, recommend follow up with PCP or return to urgent care - Billing Disposition and Condition Condition: GOOD Disposition: Home
== END 2019-07-06 10:07 | disposition home or self-care (01) ==
LOC: UCEAST 08:33
DX: B34.9 Viral infection, unspecified (principal); R51 Headache; R05 Cough; R09.89 Other specified symptoms and signs involving the circulatory and respiratory systems; Z87.891 Personal history of nicotine dependence; Z88.0 Allergy status to penicillin
CPT/HCPCS: 99211; G0463